=== PATIENT | female | born 1965 ===

== ENCOUNTER 2024-08-22 06:05 | Day surgery (SDC) | payer OTHER ==
[2024-08-14 13:26] VITALS: BP 144/80
[~2024-08-22] VITALS: Ht 157.5 cm; Wt 71.7 kg
[~2024-08-22 06:05] MED LIST: COZAAR25 MG PO; FOLIC ACID0.4 MG; FOSAMAX70 MG PO; LIPITOR20 MG; SYNTHROID137 MCG PO; TOPROL XL50 M1 PO
[2024-08-22] MEDS ORDERED: METRONIDAZOLE/SODIUM CHLORIDE 500 MG/100 ML PIGGYBACK IV ONE (07:04)
[2024-08-22] MEDS ORDERED: CEFTRIAXONE SODIUM 2,000 MG VIAL ONE (07:04)
[2024-08-22] MEDS ORDERED: HEMOSTATIC MATRIX 1 KIT KIT TOP ONE (07:08)
[2024-08-22] MEDS ORDERED: POVIDONE-IODINE 118 ML BOTT TOP ONE (07:08)
[2024-08-22] MEDS ORDERED: BUPIVACAINE HCL/MPF 0.5% 30ML VIAL ONE (07:08)
[2024-08-22] MEDS ORDERED: DIBUCAINE 30 GM TUBE ONE (07:08)
[2024-08-22] MEDS ORDERED: BUPIVACAINE LIPOSOME/PF 266 MG/20 ML VIAL IJ ONE (07:31)
[2024-08-22] MEDS ORDERED: PERCOCET 5-3251 EACH PO (08:55)
[2024-08-22] MEDS ORDERED: INTESTINEX680 M1 PO (08:55)
[2024-08-22] MEDS ORDERED: NEURONTIN300 MG PO (08:55)
== END 2024-08-22 13:10 | disposition home or self-care (01) ==
LOC: CIR.AMB 06:05
PROVIDERS: ATTEND Surgery
DX: K64.2 Third degree hemorrhoids (principal); K64.4 Residual hemorrhoidal skin tags; K64.8 Other hemorrhoids; K62.5 Hemorrhage of anus and rectum